=== PATIENT | female | born 1955 | race Caucasian/White ===

== ENCOUNTER 2019-10-06 10:37 | Outpatient (CLI) | payer MEDICARE, OTHER, MEDICAID ==
[2019-10-06 15:12] LABS: BASOPHILS % (AUTO) 0.5 %; EOSINOPHILS # (AUTO) 0.1 10^3/uL (0.0-0.7); EOSINOPHILS % (AUTO) 1.5 %; HGB - HEMOGLOBIN 11.2 g/dL (12.0-16.0); LYMPHOCYTES # (AUTO) 1.3 10^3/uL (1.5-3.5); LYMPHOCYTES % (AUTO) 17.2 %; MEAN CORPUSCULAR HEMOGLOBIN 26.1 pg (27.0-31.0); MEAN CORPUSCULAR HGB CONC 30.5 g/dL (32.0-36.0); MEAN CORPUSCULAR VOLUME 85.5 fL (81.0-99.0); MONOCYTES # (AUTO) 0.6 10^3/uL (0.0-1.0); MONOCYTES % (AUTO) 8.3 %; NEUTROPHILS # (AUTO) 5.4 10^3/uL (1.5-6.6); NEUTROPHILS % (AUTO) 72.2 %; PLT - PLATELET COUNT 350 10^3/uL (130-450); RED BLOOD COUNT 4.29 10^6/uL (4.20-5.40); RED CELL DISTRIBUTION WIDTH 16.1 % (12.0-15.0); WHITE BLOOD COUNT 7.4 x10^3/uL (4.8-10.8)
[2019-10-06 15:40] LABS: ALBUMIN 3.7 g/dL (3.2-5.5); ALBUMIN/GLOBULIN RATIO 1.2 (1.0-2.2); ALKALINE PHOSPHATASE 80 IU/L (42-121); ALT ALANINE AMINOTRANSFERASE 11 IU/L (10-60); AST ASPARTATE AMINOTRANSFERASE 18 IU/L (10-42); BILIRUBIN,TOTAL 0.8 mg/dL (0.2-1.0); BUN - BLOOD UREA NITROGEN 14 mg/dL (6-20); CALCIUM 8.9 mg/dL (8.5-10.3); CARBON DIOXIDE - CO2 26 mmol/L (21-32); CHLORIDE 99 mmol/L (101-111); CHOL/HDL RATIO 3.4 (<4.4); CHOLESTEROL 207 mg/dL; CREATININE 0.7 mg/dL (0.4-1.0); GLUCOSE 91 mg/dL (70-100); HDL CHOLESTEROL 61 mg/dL; LDL CHOLESTEROL,CALCULATED 134 mg/dL; LDL/HDL RATIO 2.2 (<4.4); SODIUM 134 mmol/L (135-145); TOTAL PROTEIN 6.9 g/dL (6.7-8.2); VLDL CHOLESTEROL 12 mg/dL
== END 2019-10-06 10:38 | disposition home or self-care (01) ==
LOC: LAB.S 10:37
PROVIDERS: ATTEND Physician Assistant
DX: E87.1 Hypo-osmolality and hyponatremia (principal); R60.0 Localized edema; D62 Acute posthemorrhagic anemia; K92.2 Gastrointestinal hemorrhage, unspecified; F11.20 Opioid dependence, uncomplicated; K21.9 Gastro-esophageal reflux disease without esophagitis
CPT/HCPCS: 36415; 80053; 80061; 83721; 84443; 85025

== ENCOUNTER 2019-11-19 14:30 | Outpatient (CLI) | payer MEDICARE, MEDICAID | END 2019-11-19 23:59 | disposition home or self-care (01) | LOC: LAB.R 14:30 | PROVIDERS: ATTEND Family Medicine | DX: N39.0 Urinary tract infection, site not specified (principal) | CPT/HCPCS: 87086 ==

== ENCOUNTER 2019-12-27 13:10 | Outpatient (CLI) | payer MEDICARE, MEDICAID | END 2019-12-27 23:59 | disposition home or self-care (01) | LOC: LAB.R 13:10 | PROVIDERS: ATTEND Internal Medicine | DX: R82.90 Unspecified abnormal findings in urine (principal) | CPT/HCPCS: 87086; 87181 ==

== ENCOUNTER 2020-01-13 14:38 | Outpatient (CLI) | payer MEDICARE, MEDICAID | END 2020-01-13 14:39 | disposition critical access hospital (66) | LOC: EMS 14:38 | PROVIDERS: ATTEND Surgery | DX: R55 Syncope and collapse (principal) | CPT/HCPCS: A0425; A0427 ==

== ENCOUNTER 2020-01-13 15:16 | Emergency (ER) | payer MEDICARE, MEDICAID ==
--- NOTE | 2020-01-13 15:43 | ED Physician Documentation ---
History of Present Illness - Stated complaint Stated Complaint: FALL - Chief complaint Chief Complaint: General - Additonal information Additional information: 64-year-old female presents to the emergency department for evaluation of a syncopal episode that occurred this afternoon when she was walking to her kitchen. She is quite a debilitated woman. She has a history of an esophageal tear for which she was hospitalized at [facility] for nearly 5 months. While there she reports that she needed many surgical procedures to repair the tear. The esophageal tear was likely secondary to her history of a gastric bypass surgery. At the end of her hospitalization at [facility] she was started on Suboxone for pain control. She was discharged on September 24, 2019. Since then patient reports that she vomits nearly every day and has lost somewhere between 30 and 40 pounds. She reports that she has been told that she is likely allergic to Suboxone and that is what is causing the vomiting but ideal options has not offered her an alternative to analgesia. Patient denies shortness of breath or chest pain. She reports that she often feels faint and dizzy with ambulation. Most often she is able to use a cane and just moves slowly. She denies a suddenly severe headache, diarrhea or bloody stools. Patient also completed a course of Cipro yesterday for recent urinary tract infection. 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 She was transferred to [facility] due to ongoing complications and underwent a second thoracotomy, decortication and repair of gastric pouch. She entered septic shock but was ultimately discharged from the hospital in June 2019. However she did require rehospitalization due to ongoing complications that included a GI bleed, hypotension, infections, protein malnutrition and electrolyte imbalances. Past medical history: Gastric bypass 2016, chronic pain and opioid dependence, depression, fibromyalgia, PTSD, atrial fib, hypertension, TIA with visual deficits, GERD. Review of Systems Constitutional: reports: Fatigue, Weight Loss. denies: Fever, Chills Eyes: reports: Reviewed and negative Ears: reports: Reviewed and negative Nose: reports: Reviewed and negative Throat: reports: Reviewed and negative Cardiac: denies: Chest pain / pressure, Palpitations, Pedal edema, Calf pain Respiratory: denies: Dyspnea, Cough, Hemoptysis GI: reports: Abdominal Pain, Nausea, Vomiting. denies: Constipation, Diarrhea, Hematemesis, Bloody / black stool : reports: Dysuria. denies: Frequency, Hesitancy Skin: reports: Rash Musculoskeletal: denies: Neck pain, Back pain Neurologic: reports: Generalized weakness, Near syncope, Syncope. denies: Focal weakness, Numbness, Difficulty speaking, Seizure, Confused, Altered mental status, Headache, LOC Psychiatric: reports: Depressed PD PAST MEDICAL HISTORY - Allergies Allergies/Adverse Reactions: Allergies Allergy/AdvReac Type Severity Reaction Status Date / Time ketorolac [From Toradol] Allergy Unknown Verified 01/13/20 15:29 mirtazapine [From Remeron] Allergy Unknown Verified 01/13/20 15:29 buprenorphine [From Suboxone] AdvReac Unknown Verified 01/13/20 15:29 naloxone [From Suboxone] AdvReac Unknown Verified 01/13/20 15:29 PD ED PE EXPANDED - General General: Alert, Disheveled, poorly kept, Other (Appears debilitated and chronically ill) - HEENT HEENT: Atraumatic, PERRL, EOMI, Dry mucous membranes - Eyes Eyes: PERRL, Normal accommodation - Cardiac Cardiac: An, Cap refill < 2 sec, Other (1+ radial and pedal pulses bilaterally). No: Murmur Present - Respiratory Respiratory: No: Clear to ausultation murphy, Distress, Labored - Abdomen Abdomen: Normal Bowel sounds. No: Tender to palpation - Back Back: Normal exam. No: Vertebral tenderness - Extremities Extremities: Normal - Neuro Neuro: Alert and Oriented X 3, CNII-XII intact, Normal speech - GCS Eye Opening: Spontaneous Motor: Obeys Commands Verbal: Oriented Total: 15 Results - Vitals Vitals: Vital Signs - 24 hr 01/13/20 01/13/20 15:22 15:28 Temperature 37 C 37 C Heart Rate 95 48 L Respiratory 18 18 Rate Blood Pressure 103/65 103/65 O2 Saturation 100 100 Oxygen O2 Source Room air - EKG (time done) 1522 Rate: An (52) Rhythm: Sinus bradycardia [place]: Normal Intervals: Normal [place] Ischemia: Normal ST segments, Q waves (inferior leads; old) Compare to prior EKG: Old EKG unavailable Computer interpretation: Agree with computer (Sinus an; old inferior infarct) - Labs Labs: Laboratory Tests 01/13/20 01/13/20 01/13/20 15:44 15:44 15:44 WBC 5.7 RBC 4.58 Hgb 13.6 Hct 40.0 MCV 87.3 MCH 29.7 MCHC 34.0 RDW 14.7 Plt Count 242 MPV 9.1 Neut # (Auto) 4.1 Lymph # (Auto) 1.1 L [place] # (Auto) 0.5 Eos # (Auto) 0.0 Baso # (Auto) 0.0 Absolute Nucleated RBC 0.00 Nucleated RBC % 0.0 Sodium 133 L Potassium 3.7 Chloride 97 L Carbon Dioxide 24 Anion Gap 12.0 BUN 20 Creatinine 0.8 Estimated GFR (MDRD) 72 L Glucose 186 H Lactic Acid 0.9 Calcium 8.8 Phosphorus 2.6 Magnesium 1.8 Total Bilirubin 1.3 H AST 18 ALT 13 Alkaline Phosphatase 39 L Troponin I High Sens Total Protein 6.2 L Albumin 3.7 Globulin 2.5 Albumin/Globulin Ratio 1.5 Lipase 24 TSH Urine Color Urine Clarity Urine pH Ur Specific [place] Urine Protein Urine Glucose (UA) Urine Ketones Urine Occult Blood Urine Nitrite Urine Bilirubin Urine Urobilinogen Ur Leukocyte Esterase Ur Microscopic Review Urine Culture Comments 01/13/20 01/13/20 01/13/20 15:44 15:44 16:15 WBC RBC Hgb Hct MCV MCH MCHC RDW Plt Count MPV Neut # (Auto) Lymph # (Auto) [place] # (Auto) Eos # (Auto) Baso # (Auto) Absolute Nucleated RBC Nucleated RBC % Sodium Potassium Chloride Carbon Dioxide Anion Gap BUN Creatinine Estimated GFR (MDRD) Glucose Lactic Acid Calcium Phosphorus Magnesium Total Bilirubin AST ALT Alkaline Phosphatase Troponin I High Sens 4.2 Total Protein Albumin Globulin Albumin/Globulin Ratio Lipase TSH 1.56 Urine Color YELLOW Urine Clarity CLEAR Urine pH 6.0 Ur Specific [place] 1.025 Urine Protein TRACE Urine Glucose (UA) NEGATIVE Urine Ketones 40 H Urine Occult Blood NEGATIVE Urine Nitrite NEGATIVE Urine Bilirubin NEGATIVE Urine Urobilinogen 1 (NORMAL) Ur Leukocyte Esterase NEGATIVE Ur Microscopic Review NOT INDICATED Urine Culture Comments NOT INDICATED - Rads (name of study) CXR Radiology: Final report received (No acute finding) PD MEDICAL DECISION MAKING - ED course Complexity details: reviewed old records, reviewed results, re-evaluated patient, considered differential, d/w patient ED course: 64-year-old female presents the emergency department after a syncopal episode this afternoon at home. Patient presented via EMS with noted bradycardia heart rates ranging from the mid 40s to the low 60s. She was normotensive and had no focal neuro deficits. Her labs were reviewed in full. Though she reports weight loss and vomiting for a number of months she had no leukocytosis or significant electrolyte abnormalities. I did speak with the physician information security officer for the clinic and confirmed that with the most recent visits the patient has had heart rates that have ranged in the 40s to the 60s. Her chest x-ray was unremarkable and high-sensitivity troponin was negative. She remains alert oriented and has no focal neuro deficits. Patient reports to me that She believes the Suboxone is the reason she vomits chronically. I have encouraged her to follow-up with her pain management doctors as the emergency department cannot prescribe long-term opioids or analgesics. Patient reports that she has multiple antiemetics at home including Reglan and Compazine and Zofran. I have encouraged her to try and use these routinely and eat small frequent bits of food and sips of water Patient will be called by her primary care clinic to have follow-up with the PCP likely tomorrow or Friday. Emergent return precautions discussed Departure - Departure Disposition: Home, Self Care Clinical Impression: Syncope and collapse, Bradycardia, Chronic pain syndrome Vomiting Qualifiers: Vomiting type: unspecified Vomiting Intractability: unspecified Nausea presence: unspecified Qualified Code(s): R11.10 - Vomiting, unspecified Condition: Serious Record reviewed to determine appropriate education?: Yes Comments: Sasha your EKG today shows a slow heart rate however this is not any different than it has been for some time and with your clinic visits. Your chest x-ray and labs were otherwise unremarkable. You may be having chronic vomiting due to the Suboxone but it is important that your pain management doctors address this concern. Your clinic will be calling you to arrange close follow-up within the next 24 hours. If at any point you have worsening symptoms any fainting episodes or suddenly severe abdominal pain please return to the emergency depart ment
[2020-01-13 16:02] LABS: BASOPHILS % (AUTO) 0.5 %; EOSINOPHILS % (AUTO) 0.4 %; HGB - HEMOGLOBIN 13.6 g/dL (12.0-16.0); LYMPHOCYTES # (AUTO) 1.1 10^3/uL (1.5-3.5); LYMPHOCYTES % (AUTO) 19.5 %; MEAN CORPUSCULAR HEMOGLOBIN 29.7 pg (27.0-31.0); MEAN CORPUSCULAR VOLUME 87.3 fL (81.0-99.0); MEAN PLATELET VOLUME 9.1 fL (7.9-10.8); MONOCYTES # (AUTO) 0.5 10^3/uL (0.0-1.0); MONOCYTES % (AUTO) 7.9 %; NEUTROPHILS # (AUTO) 4.1 10^3/uL (1.5-6.6); NEUTROPHILS % (AUTO) 71.5 %; PLT - PLATELET COUNT 242 10^3/uL (130-450); RED BLOOD COUNT 4.58 10^6/uL (4.20-5.40); RED CELL DISTRIBUTION WIDTH 14.7 % (12.0-15.0); WHITE BLOOD COUNT 5.7 x10^3/uL (4.8-10.8)
[2020-01-13 16:06] LABS: ALBUMIN 3.7 g/dL (3.2-5.5); ALBUMIN/GLOBULIN RATIO 1.5 (1.0-2.2); BILIRUBIN,TOTAL 1.3 mg/dL (0.2-1.0); CALCIUM 8.8 mg/dL (8.5-10.3); CREATININE 0.8 mg/dL (0.4-1.0); MAGNESIUM 1.8 mg/dL (1.7-2.8); PHOSPHORUS 2.6 mg/dL (2.5-4.6); TOTAL PROTEIN 6.2 g/dL (6.7-8.2)
--- NOTE | 2020-01-13 16:14 | XRAY Report ---
PROCEDURE: Chest 1 View X-Ray INDICATIONS: Syncope TECHNIQUE: One view of the chest was acquired. COMPARISON: None FINDINGS: Surgical changes and devices: None. Lungs and pleura: No pleural effusions or pneumothorax. Lungs are clear. Mediastinum: Mediastinal contours appear normal. Heart size is normal. Bones and chest wall: No suspicious bony lesions. Overlying soft tissues appear unremarkable. IMPRESSION: No acute finding. Reviewed by: Wu Oconnor MD on 01/13/2020 4:13 PM PDT Approved by: Wu Oconnor MD on 01/13/2020 4:13 PM PDT Station ID: [id number]
[2020-01-13 16:18] LABS: GLUCOSE, URINE (UA) NEGATIVE (NEGATIVE); KETONES,URINE (UA) 40 mg/dL (NEGATIVE); LEUKOCYTE ESTERASE, URINE NEGATIVE (NEGATIVE); NITRITE,URINE NEGATIVE (NEGATIVE); OCCULT BLOOD,URINE NEGATIVE (NEGATIVE); PROTEIN,URINE TRACE mg/dL (NEGATIVE); UROBILINOGEN,URINE 1 (NORMAL) E.U./dL (NORMAL)
[2020-01-13 16:21] LABS: BILIRUBIN,URINE NEGATIVE (NEGATIVE); CLARITY,URINE CLEAR (CLEAR); ICTOTEST,URINE NEGATIVE
[2020-01-13 17:33] VITALS: BP 125/76
== END 2020-01-13 17:33 | disposition home or self-care (01) ==
LOC: EDUNIT# → ED 15:16
DX: R55 Syncope and collapse (principal); R00.1 Bradycardia, unspecified; R11.2 Nausea with vomiting, unspecified; G89.4 Chronic pain syndrome; I10 Essential (primary) hypertension; Z98.84 Bariatric surgery status
CPT/HCPCS: 36415; 71045; 80053; 81001; 81003; 83605; 83690; 83735; 84100; 84443; 84484; 85025; 87086; 93005; 99284

== ENCOUNTER 2020-01-15 08:00 | Outpatient (CLI) | payer MEDICARE, MEDICAID | END 2020-01-15 23:59 | disposition home or self-care (01) | LOC: LAB.S 08:00 | PROVIDERS: ATTEND Physician Assistant Medical | DX: N39.0 Urinary tract infection, site not specified (principal) | CPT/HCPCS: 87077; 87086; 87181 ==

== ENCOUNTER 2020-01-26 14:31 | Outpatient (CLI) | payer MEDICARE, MEDICAID ==
[2020-01-26 20:13] LABS: ALBUMIN 3.6 g/dL (3.2-5.5); ALBUMIN/GLOBULIN RATIO 1.4 (1.0-2.2); BILIRUBIN,TOTAL 0.8 mg/dL (0.2-1.0); CALCIUM 9.1 mg/dL (8.5-10.3); CREATININE 0.8 mg/dL (0.4-1.0); TOTAL PROTEIN 6.1 g/dL (6.7-8.2)
== END 2020-01-26 14:32 | disposition home or self-care (01) ==
LOC: LAB.S 14:31
PROVIDERS: ATTEND Physician Assistant Medical
DX: E87.1 Hypo-osmolality and hyponatremia (principal); R11.10 Vomiting, unspecified; R30.0 Dysuria
CPT/HCPCS: 36415; 80053; 87077; 87086; 87181

== ENCOUNTER 2020-02-07 08:00 | Outpatient (CLI) | payer MEDICARE, MEDICAID | END 2020-02-07 23:59 | disposition home or self-care (01) | LOC: LAB.R 08:00 | PROVIDERS: ATTEND Internal Medicine | DX: R30.0 Dysuria (principal); R32 Unspecified urinary incontinence | CPT/HCPCS: 87077; 87086; 87181 ==

== ENCOUNTER 2020-05-22 08:00 | Outpatient (CLI) | payer MEDICARE, MEDICAID | END 2020-05-22 23:59 | disposition home or self-care (01) | LOC: LAB.S 08:00 | PROVIDERS: ATTEND Physician Assistant | DX: N39.0 Urinary tract infection, site not specified (principal) | CPT/HCPCS: 87086 ==

== ENCOUNTER 2020-06-24 09:07 | Outpatient (CLI) | payer MEDICARE, MEDICAID ==
[2020-06-24 15:36] LABS: ALBUMIN 3.8 g/dL (3.2-5.5); ALBUMIN/GLOBULIN RATIO 1.4 (1.0-2.2); ALKALINE PHOSPHATASE 61 IU/L (42-121); ALT ALANINE AMINOTRANSFERASE 20 IU/L (10-60); AST ASPARTATE AMINOTRANSFERASE 37 IU/L (10-42); BASOPHILS % (AUTO) 0.8 %; BILIRUBIN,TOTAL 0.7 mg/dL (0.2-1.0); BUN - BLOOD UREA NITROGEN 19 mg/dL (6-20); CALCIUM 9.2 mg/dL (8.5-10.3); CARBON DIOXIDE - CO2 28 mmol/L (21-32); CHLORIDE 99 mmol/L (101-111); CHOL/HDL RATIO 3.1 (<4.4); CHOLESTEROL 214 mg/dL; CREATININE 0.6 mg/dL (0.4-1.0); EOSINOPHILS # (AUTO) 0.1 10^3/uL (0.0-0.7); EOSINOPHILS % (AUTO) 2.3 %; GFR - MDRD 101 (>89); GLUCOSE 89 mg/dL (70-100); HCT - HEMATOCRIT 36.5 % (37.0-47.0); HDL CHOLESTEROL 69 mg/dL; LDL CHOLESTEROL,CALCULATED 127 mg/dL; LDL/HDL RATIO 1.8 (<4.4); LYMPHOCYTES # (AUTO) 1.3 10^3/uL (1.5-3.5); LYMPHOCYTES % (AUTO) 27.8 %; MEAN CORPUSCULAR HEMOGLOBIN 31.4 pg (27.0-31.0); MEAN CORPUSCULAR HGB CONC 32.9 g/dL (32.0-36.0); MEAN CORPUSCULAR VOLUME 95.5 fL (81.0-99.0); MEAN PLATELET VOLUME 9.5 fL (7.9-10.8); MONOCYTES # (AUTO) 0.6 10^3/uL (0.0-1.0); MONOCYTES % (AUTO) 12.8 %; NEUTROPHILS # (AUTO) 2.7 10^3/uL (1.5-6.6); NEUTROPHILS % (AUTO) 56.1 %; PLT - PLATELET COUNT 225 10^3/uL (130-450); POTASSIUM 4.4 mmol/L (3.5-5.0); RED BLOOD COUNT 3.82 10^6/uL (4.20-5.40); RED CELL DISTRIBUTION WIDTH 12.1 % (12.0-15.0); SODIUM 137 mmol/L (135-145); TOTAL PROTEIN 6.5 g/dL (6.7-8.2); TRIGLYCERIDES 89 mg/dL; VLDL CHOLESTEROL 18 mg/dL; WHITE BLOOD COUNT 4.8 x10^3/uL (4.8-10.8)
== END 2020-06-24 09:08 | disposition home or self-care (01) ==
LOC: LAB.S 09:07
PROVIDERS: ATTEND Internal Medicine
DX: E87.1 Hypo-osmolality and hyponatremia (principal); D62 Acute posthemorrhagic anemia; N39.0 Urinary tract infection, site not specified; E78.5 Hyperlipidemia, unspecified
CPT/HCPCS: 36415; 80053; 80061; 83721; 85025

== ENCOUNTER 2020-07-12 14:30 | Outpatient (CLI) | payer MEDICARE, MEDICAID | END 2020-07-12 23:59 | disposition home or self-care (01) | LOC: LAB.S 14:30 | PROVIDERS: ATTEND Nurse Practitioner | DX: R30.0 Dysuria (principal); N39.0 Urinary tract infection, site not specified | CPT/HCPCS: 87086; 87181 ==

== ENCOUNTER 2021-01-18 09:27 | Outpatient (CLI) | payer MEDICARE, MEDICAID | END 2021-01-18 09:28 | disposition critical access hospital (66) | LOC: EMS 09:27 | DX: Z04.3 Encounter for examination and observation following other accident (principal); M25.552 Pain in left hip; M54.50 Low back pain, unspecified | CPT/HCPCS: A0425; A0427 ==

== ENCOUNTER 2021-01-18 10:02 | Emergency (ER) | payer MEDICARE, MEDICAID ==
[2021-01-18] MEDS ORDERED: SODIUM CHLORIDE 0.9% 500 ML IV STA (10:15)
--- NOTE | 2021-01-18 10:15 | ED Physician Documentation ---
PD HPI Fall - Stated complaint Stated Complaint: GLF - History obtained from History obtained from: Patient, EMS - History of Present Illness Mechanism of injury: Lost balance, Other (she feels that she fainted and fell. She got up during night to get a snack in kitchen, was reaching up to [employer] shelf and felt lightheaded, then fell back/to sitting. Awoke with pain to low back and left hip. Feeling okay regarding LOC and alertness this morning.) Fall distance: Standing position Where injury occurred: Home Timing - onset: Last night Injury(ies) location: Back, Left Lower Extremity (posterior hip). No: Head, Neck Quality of pain: Pain, Aching Associated symptoms: LOC (brief fainting episode). No: AMS Worsens with: Movement, Other (walking) Contributing factors: No: Anticoagulated Similar symptoms before: Other (chronic low back pain and sees Dr. Jarred Logan, Pain Specialist at [facility], and is on Buprenorphine 8 mg TID for that.) Recently seen: Not recently seen Review of Systems Constitutional: denies: Fever, Chills Nose: denies: Rhinorrhea / runny nose, Congestion Throat: denies: Sore throat Cardiac: denies: Chest pain / pressure, Palpitations, Pedal edema Respiratory: denies: Cough Skin: denies: Abrasion (s), Laceration (s) Neurologic: denies: Headache, Head injury PD PAST MEDICAL HISTORY - Past Medical History Cardiovascular: None, Other (she states history of low BP and heart rate chronically. 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 : None HEENT: None Psych: Depression, Anxiety Musculoskeletal: Osteoarthritis - Past Surgical History Past Surgical History: No General: Bowel surgery, Gastric surgery Ortho: Shoulder arthroplasty HEENT: Other - Present Medications Home Medications: Ambulatory Orders Medication Instructions Recorded Confirmed Buprenorphine HCl/Naloxone HCl 1 tab SL TID 01/18/21 01/18/21 [Suboxone 8-2 mg Tab] HYDROmorphone [Dilaudid] 4 mg PO Q6H 4 Days #24 tablet 01/18/21 Lidocaine Patch 5% [Lidoderm Patch] 1 patch TOP DAILY PRN #10 patch 01/18/21 - Allergies Allergies/Adverse Reactions: Allergies Allergy/AdvReac Type Severity Reaction Status Date / Time ketorolac [From Toradol] Allergy Unknown Verified 01/13/20 15:29 mirtazapine [From Remeron] Allergy Unknown Verified 01/13/20 15:29 - Living Situation Living Situation: reports: Alone Living Arrangement: reports: At home - Social History Does the pt smoke?: No Smoking Status: Never smoker Does the pt drink ETOH?: No Does the pt have substance abuse?: Yes - Immunizations Immunizations are current?: Yes - POLST Patient has POLST: No PD ED PE NORMAL - Vitals Vital signs reviewed: Yes - General General: Alert and oriented X 3, No acute distress, Well developed/nourished - HEENT HEENT: Atraumatic, Pharynx benign - Neck Neck: Supple, no meningeal sign, No adenopathy - Cardiac Cardiac: No murmur. No: RRR (bradycardic steadily) - Respiratory Respiratory: Clear bilaterally, Other (no chestwall tenderness. ) - Abdomen Abdomen: Soft, Non tender - Back Back: No CVA TTP, Other (some tender lower back to left without deformity. ) - Derm Derm: Normal color, Warm and dry - Extremities Extremities: Other (The left lateral and posterior hip and ramus area with some tenderness. No obvious deformity. No pain in the hip with impaction nor distraction. Does hurt for rotation.) - Neuro Neuro: Alert and oriented X 3, No motor deficit, No sensory deficit, Normal speech Results - Vitals Vitals: Vital Signs - 24 hr 01/18/21 01/18/21 01/18/21 10:09 10:40 13:19 Temperature 36.7 C 36.6 C Heart Rate 54 L 55 L 57 L Respiratory 19 17 15 Rate Blood Pressure 87/52 L 104/67 107/72 O2 Saturation 100 100 99 01/18/21 15:28 Temperature 36.6 C Heart Rate 48 L Respiratory 17 Rate Blood Pressure 99/64 O2 Saturation 98 Oxygen O2 Source Room air - EKG (time done) presentation Rate: Rate (enter#) (55) Rhythm: Sinus bradycardia [place]: Normal Intervals: Normal [place] QRS: Normal Ischemia: Normal ST segments. No: ST elevation c/w ischemia, ST depression - Labs Labs: Laboratory Tests 01/18/21 01/18/21 01/18/21 10:51 10:51 10:51 WBC 5.4 RBC 3.86 L Hgb 12.0 Hct 35.5 L MCV 92.0 MCH 31.1 H MCHC 33.8 RDW 12.5 Plt Count 174 MPV 8.9 Neut # (Auto) 4.1 Lymph # (Auto) 0.7 L [place] # (Auto) 0.6 Eos # (Auto) 0.1 Baso # (Auto) 0.0 Absolute Nucleated RBC 0.00 Nucleated RBC % 0.0 Sodium 138 Potassium 4.0 Chloride 104 Carbon Dioxide 27 Anion Gap 7.0 BUN 21 H Creatinine 0.8 Estimated GFR (MDRD) 72 L Glucose 74 Calcium 8.5 Magnesium 1.9 Total Bilirubin 0.6 AST 21 ALT 15 Alkaline Phosphatase 61 Troponin I High Sens 2.5 Total Protein 5.8 L Albumin 3.5 Globulin 2.3 Albumin/Globulin Ratio 1.5 Lipase 22 - Rads (name of study) right hip Radiology: Prelim report reviewed (no fractures), See rad report lumbar CT Radiology: Prelim report reviewed (no acute fractures), See rad report pelvic CT Radiology: Prelim report reviewed (ramus fracture. No hip fracture. ), See rad report PD MEDICAL DECISION MAKING - ED course Complexity details: reviewed results, considered differential, d/w net developer consultant (Jarred Logan, Pain Specialist at [facility], who suggested pain med regimen of oral dilaudid 4 mg qid 2 days, then 2 mg qid 2 days, then prn. Continue Buprenorphone. ) Departure - Departure Disposition: 01 Home, Self Care Clinical Impression: Transient hypotension, Bradycardia, Chronic hypotension, Chronic sinus bradycardia Syncope Qualifiers: Syncope type: vasovagal syncope Qualified Code(s): R55 - Syncope and collapse Pubic ramus fracture Qualifiers: Encounter type: initial encounter Fracture type: closed Laterality: left Qualified Code(s): S32.592A - Other specified fracture of left pubis, initial encounter for closed fracture Chronic back pain Qualifiers: Back pain location: low back pain Back pain laterality: unspecified Sciatica presence: without sciatica Qualified Code(s): M54.50 - Low back pain, unspecified Fall Qualifiers: Encounter type: initial encounter Qualified Code(s): W19.XXXA - Unspecified fall, initial encounter Condition: Stable Record reviewed to determine appropriate education?: Yes Instructions: ED Fx Pelvis Follow-Up: Roland Carlos MD [Primary Care Provider] - Prescriptions: HYDROmorphone [Dilaudid] 4 mg PO Q6H 4 Days #24 tablet Lidocaine Patch 5% [Lidoderm Patch] 1 patch TOP DAILY PRN #10 patch PRN Reason: pain Comments: I talked with Dr. Logan who suggested the following pain regimen for the short-term due to your acute injury: Continue your buprenorphine on 8 mg 3 times a day. To that add lidocaine patch daily over the hip area that is hurting. She suggested gabapentin 300 mg 3 times a day. If you are already on gabapentin then just continue your current regimen. To that adding Tylenol 500 mg 4 times a day. To that adding hydromorphone oral tablet 4 mg 4 times a day for 2 days, then 2 mg 4 times a day for 2 days, then continuing every 4-6 hours as needed. The intention of this added medicine is over the first week or so. Be in contact with Dr. Logan Friday for any further modification of that. Use the walker to assist to being up and around and weightbearing and activity as tolerated. Stay well hydrated. Forms: Activity restrictions Discharge Date/Time: 01/18/21 16:52
[2021-01-18] MEDS ORDERED: fentaNYL 100 MCG/2 ML VIAL IVP STA (10:43)
--- NOTE | 2021-01-18 10:46 | XRAY Report ---
PROCEDURE: Hip w/Pelvis 2-3V LT INDICATIONS: fall with left hip pain TECHNIQUE: AP pelvis with lateral view(s) of the bilateral hip(s). COMPARISON: None. FINDINGS: Bones: No fractures or dislocations. Pelvic ring appears intact. No suspicious bony lesions. Hypox ia arthritis. Soft tissues: The visualized bowel gas pattern is normal. No suspicious soft tissue calcifications. IMPRESSION: No fracture. No acute osseous lesion. If there persistent symptoms or continued clinical concern for pathology, then repeat plain film radiographs (7-10 days) or advanced imaging (CT, MR, bone scan) angel uld be considered for further evaluation. Reviewed by: Oxana Zapien MD, PhD on 01/18/2021 10:45 AM PDT Approved by: Oxana Zapien MD, PhD on 01/18/2021 10:45 AM PDT Station ID: [id number]
[2021-01-18 10:56] LABS: BASOPHILS % (AUTO) 0.6 %; EOSINOPHILS # (AUTO) 0.1 10^3/uL (0.0-0.7); EOSINOPHILS % (AUTO) 0.9 %; HCT - HEMATOCRIT 35.5 % (37.0-47.0); LYMPHOCYTES # (AUTO) 0.7 10^3/uL (1.5-3.5); LYMPHOCYTES % (AUTO) 12.6 %; MEAN CORPUSCULAR HEMOGLOBIN 31.1 pg (27.0-31.0); MEAN CORPUSCULAR HGB CONC 33.8 g/dL (32.0-36.0); MEAN PLATELET VOLUME 8.9 fL (7.9-10.8); MONOCYTES # (AUTO) 0.6 10^3/uL (0.0-1.0); MONOCYTES % (AUTO) 10.2 %; NEUTROPHILS # (AUTO) 4.1 10^3/uL (1.5-6.6); NEUTROPHILS % (AUTO) 75.3 %; PLT - PLATELET COUNT 174 10^3/uL (130-450); RED BLOOD COUNT 3.86 10^6/uL (4.20-5.40); RED CELL DISTRIBUTION WIDTH 12.5 % (12.0-15.0); WHITE BLOOD COUNT 5.4 x10^3/uL (4.8-10.8)
[2021-01-18 11:19] LABS: ALBUMIN 3.5 g/dL (3.2-5.5); ALBUMIN/GLOBULIN RATIO 1.5 (1.0-2.2); BILIRUBIN,TOTAL 0.6 mg/dL (0.2-1.0); CALCIUM 8.5 mg/dL (8.5-10.3); CREATININE 0.8 mg/dL (0.4-1.0); MAGNESIUM 1.9 mg/dL (1.7-2.8); TOTAL PROTEIN 5.8 g/dL (6.7-8.2)
--- NOTE | 2021-01-18 12:40 | CT Report ---
PROCEDURE: PELVIS WO INDICATIONS: fall with low back pain and hip pain TECHNIQUE: Noncontrast 3 mm axial sections acquired through the bony pelvis, with coronal and sagittal reformatt ing. For radiation dose reduction, the following was used: automated exposure control, adjustment of mA and/or kV according to patient size. COMPARISON: None. FINDINGS: Image quality: Excellent. Bones: There is subtle deformity of the left symphysis pubis which may represent subtle acute fractu re versus deformity from remote fracture. No other fractures or dislocations are identified involving the pelvis and left hip. Soft tissues: Unremarkable IMPRESSION: Question subtle left symphysis pubis fracture. Recommend correlation with physical exam. No other fra ctures or dislocations identified. Reviewed by: Wai Baird MD on 01/18/2021 12:39 PM PDT Approved by: Wai Baird MD on 01/18/2021 12:39 PM PDT Station ID: [id number]
--- NOTE | 2021-01-18 12:43 | CT Report ---
PROCEDURE: LUMBAR SPINE WO INDICATIONS: fall with low back pain and hip pain TECHNIQUE: Noncontrast 3 mm thick sections acquired from the T12 level to the sacrum. Sagittal and coronal reformats were constructed. For radiation dose reduction, the following was used: automated exposure control, adjustment of mA and/or kV according to patient size. COMPARISON: None. FINDINGS: Image quality: Excellent. Bones: There is normal bony alignment. There is minimal wedge-shaped L1 30% anterior height loss is noted. No retropulsed fracture fragment present. Otherwise, no acute vertebral body compression fract ures. No suspicious lytic or blastic bony lesions. No pars defects. T12-L1: Disc space narrowing and circumferential disc bulge results in mild central and moderate murphy ateral foraminal stenosis. L1-L2: Disc space narrowing and circumferential disc bulge with minimal retrolisthesis present. Th ere is mild central and severe right foraminal stenosis. Moderate left foraminal stenosis present. L2-L3: Disc space narrowing and circumferential disc bulge with hypertrophic facet joints results in moderate central stenosis. There is severe right and moderate left foraminal stenosis. L3-L4: Disc space narrowing and circumferential disc bulge combines with hypertrophic facet joints and ligamentum flavum laxity to result in moderate central stenosis. There is severe right and modera te left foraminal stenosis. L4-L5: Circumferential disc bulge with hypertrophic facet joints and ligamentum flavum laxity resul ts in severe central stenosis. Moderate right and severe left foraminal stenosis present. L5-S1: Disc space narrowing and circumferential disc bulge with hypertrophic facet joint results in moderate central stenosis. Moderate right and severe left foraminal stenosis present. Soft tissues: No retroperitoneal masses or hematomas. Visualized aorta is normal in caliber. Prior gastric surgery and hiatal hernia is partially imaged. IMPRESSION: 1. Wedge-shaped 30% L1 compression fracture without retropulsed fracture fragment, uncertain age. 2. Multilevel degenerative disc disease and arthropathy resulting in varying degrees of central and f oraminal stenosis including severe central stenosis at L4-5 and multilevel severe foraminal stenosis as above. Reviewed by: Ede Vaughn MD on 01/18/2021 11:42 AM LORAINE Approved by: Ede Vaughn MD on 01/18/2021 11:42 AM AKKEVAN Station ID: [id number]
[2021-01-18] MEDS ORDERED: HYDROmorphone 2 MG TABLET PO STA (14:07)
[2021-01-18] MEDS ORDERED: LIDOCAINE PATCH 5% TOP STA (14:07)
[2021-01-18 15:29] VITALS: BP 99/64
== END 2021-01-18 16:52 | disposition home or self-care (01) ==
LOC: EDUNIT# → ED 10:02
DX: S32.010A Wedge compression fracture of first lumbar vertebra, initial encounter for closed fracture (principal); W18.30XA Fall on same level, unspecified, initial encounter; Y92.009 Unspecified place in unspecified non-institutional (private) residence as the place of occurrence of the external cause; R00.1 Bradycardia, unspecified; I95.9 Hypotension, unspecified
CPT/HCPCS: 36415; 72131; 72192; 73502; 80053; 83690; 83735; 84484; 85025; 93005; 96374; 99284; A9270

== ENCOUNTER 2021-04-25 12:14 | Outpatient (CLI) | payer MEDICARE, MEDICAID ==
[2021-04-25 14:59] LABS: BILIRUBIN,URINE NEGATIVE (NEGATIVE); CLARITY,URINE SL. CLOUDY (CLEAR); GLUCOSE, URINE (UA) NEGATIVE (NEGATIVE); KETONES,URINE (UA) NEGATIVE (NEGATIVE); LEUKOCYTE ESTERASE, URINE SMALL (NEGATIVE); NITRITE,URINE POSITIVE (NEGATIVE); OCCULT BLOOD,URINE NEGATIVE (NEGATIVE); PROTEIN,URINE NEGATIVE (NEGATIVE); UROBILINOGEN,URINE 0.2 (NORMAL) E.U./dL (NORMAL)
[2021-04-25 15:13] LABS: BACTERIA,URINE Many /HPF (None Seen); RBC,URINE 0-5 /HPF (0-5); SQUAMOUS EPITHELIAL CELL,UR MOD Squamous (<= Few)
== END 2021-04-25 23:59 | disposition home or self-care (01) ==
LOC: LAB.S 12:14
PROVIDERS: ATTEND Registered Nurse
DX: N30.01 Acute cystitis with hematuria (principal); R30.0 Dysuria
CPT/HCPCS: 81001; 87086

== ENCOUNTER 2021-06-08 14:40 | Outpatient (CLI) | payer MEDICARE, MEDICAID | END 2021-06-08 14:41 | disposition short-term general hospital (02) | LOC: EMS 14:40 | DX: S79.911A Unspecified injury of right hip, initial encounter (principal); W01.0XXA Fall on same level from slipping, tripping and stumbling without subsequent striking against object, initial encounter; Y92.008 Other place in unspecified non-institutional (private) residence as the place of occurrence of the external cause | CPT/HCPCS: A0425; A0427 ==

== ENCOUNTER 2022-11-07 08:00 | Outpatient (CLI) | payer MEDICARE, MEDICAID ==
[2022-11-07 20:54] LABS: BILIRUBIN,URINE NEGATIVE (NEGATIVE); CLARITY,URINE CLOUDY (CLEAR); GLUCOSE, URINE (UA) NEGATIVE (NEGATIVE); KETONES,URINE (UA) TRACE mg/dL (NEGATIVE); LEUKOCYTE ESTERASE, URINE LARGE (NEGATIVE); NITRITE,URINE NEGATIVE (NEGATIVE); OCCULT BLOOD,URINE MODERATE (NEGATIVE); PH,URINE 5.5 PH (5.0-7.5); PROTEIN,URINE 100 mg/dL (NEGATIVE); UROBILINOGEN,URINE 0.2 (NORMAL) E.U./dL (NORMAL)
[2022-11-07 21:37] LABS: BACTERIA,URINE Many /HPF (None Seen); RBC,URINE TNTC /HPF (0-5); SQUAMOUS EPITHELIAL CELL,UR RARE Squamous (<= Few); WBC,URINE >25 /HPF (0-5)
== END 2022-11-07 23:59 | disposition home or self-care (01) ==
LOC: LAB 08:00
PROVIDERS: ATTEND Emergency Medicine
DX: N30.01 Acute cystitis with hematuria (principal)
CPT/HCPCS: 81001; 87077; 87086; 87181

== ENCOUNTER 2023-07-01 08:00 | Outpatient (CLI) | payer MEDICARE, MEDICAID ==
--- NOTE | 2023-07-01 20:16 | XRAY Report ---
PROCEDURE: Hip w/Pelvis 2-3V RT INDICATIONS: CONTUSION OF RIGHT HIP TECHNIQUE: 3 views of the hip were acquired. COMPARISON: None. FINDINGS: Bones: No fractures or dislocations. No suspicious bony lesions. Total right hip arthroplasty in go od position. No evidence of fracture or hardware failure Soft tissues: No suspicious soft tissue calcifications or masses. IMPRESSION: Total right hip arthroplasty in good position. If clinical symptoms persist, consider CT Reviewed by: Ede Vaughn MD on 07/01/2023 7:15 PM AKDT Approved by: Ede Vaughn MD on 07/01/2023 7:15 PM AKDT Station ID: [id number]
== END 2023-07-01 23:59 | disposition home or self-care (01) ==
LOC: DI.S 08:00
PROVIDERS: ATTEND Emergency Medicine
DX: S70.01XA Contusion of right hip, initial encounter (principal); Z96.641 Presence of right artificial hip joint